=== PATIENT | female | born 1965 | race Caucasian/White ===

== ENCOUNTER 2020-06-21 17:28 | Emergency (ER) | payer MEDICARE ==
--- NOTE | 2020-06-21 18:42 | ER Document Report ---
ED Medical Screen (RME) - General Stated Complaint: SUICIDAL IDEATIONS - HPI Notes: 06/21/20 18:41 Rapid Medical Exam HPI: Patient is a 55-year-old female presents to the ER complaining of depression and suicidal ideation. Patient has no set plan. No prior suicide attempts. Patient is on psychiatric medications and reports compliance. Denies alcohol or drug use. No other physical complaints today. Physical Exam: GENERAL: Well-appearing, well-nourished and in no acute distress. HEAD: Atraumatic, normocephalic. ENT: Moist mucous membranes. RESP: Respirations even and unlabored CV- Regular rate. NEURO: No focal neurological deficits. Moves all extremities spontaneously and on command. My involvement in this patients care was limited to a rapid initial assessment. A comprehensive ED assessment and evaluation of the patient, analysis of test results, treatment, and completion of the medical decision making process will be performed by other ER providers. - Related Data Allergies/Adverse Reactions: No Known Allergies Allergy (Unverified 06/21/20 18:35) Home Medications: effexor. latuda. lamotrigine. doxepin. gabapentin. hydroxyzine. meloxicam. omeprazole Past Medical History - Social History Chew tobacco use (# tins/day): No Frequency of alcohol use: None Drug Abuse: None Physical Exam - Vital signs Vitals: Temp Pulse Resp BP Pulse Ox 98.3 F 115 H 16 113/77 98 06/21/20 18:03 06/21/20 18:03 06/21/20 18:03 06/21/20 18:03 06/21/20 18:03 Course - Vital Signs Vital signs: Temp Pulse Resp BP Pulse Ox 98.3 F 115 H 16 113/77 98 06/21/20 18:03 06/21/20 18:03 06/21/20 18:03 06/21/20 18:03 06/21/20 18:03
[2020-06-21 19:06] LABS: ABSOLUTE BASOPHILS # (AUTO) 0.1 10^3/uL (0.0-0.2); ABSOLUTE MONOCYTES (AUTO) 0.5 10^3/uL (0.1-1.4); ABSOLUTE NEUT (AUTO) 3.4 10^3/uL (1.7-8.2); HEMOGLOBIN 13.3 g/dL (12.0-15.5); TOTAL CELLS COUNTED % (AUTO) 100 %
[2020-06-21 19:09] LABS: APPEARANCE,URINE SLIGHTLY-CLOUDY; BILIRUBIN,URINE NEGATIVE (NEGATIVE); COLOR,URINE YELLOW; GLUCOSE, URINE NEGATIVE (NEGATIVE); KETONES,URINE NEGATIVE (NEGATIVE); LEUKOCYTE ESTERASE,URINE SMALL (NEGATIVE); NITRITE,URINE NEGATIVE (NEGATIVE); PROTEIN,URINE NEGATIVE (NEGATIVE); URINE SPECIFIC GRAVITY 1.012; UROBILINOGEN,URINE NEGATIVE mg/dL (<2.0)
[2020-06-21 19:11] LABS: ABSOLUTE EOSINOPHILS # (AUTO) 0.7 10^3/uL (0.0-0.6); BASOPHILS % (AUTO) 0.8 % (0-2); EOSINOPHILS % (AUTO) 9.7 % (0-6); HEMATOCRIT 39.4 % (36.0-47.0); LYMPHOCYTES % (AUTO) 38.7 % (13-45); MEAN CORPUSCULAR HEMOGLOBIN 28.5 pg (27.0-33.4); MEAN CORPUSCULAR HGB CONC 33.6 g/dL (32.0-36.0); MEAN CORPUSCULAR VOLUME 85 fl (80-97); MONOCYTES % (AUTO) 5.9 % (3-13); PLATELET COUNT 210 10^3/uL (150-450); RED BLOOD COUNT 4.65 10^6/uL (3.72-5.28); RED CELL DISTRIBUTION WIDTH 14.7 % (11.5-14.0); SEGMENTED NEUTROPHILS % (AUTO) 44.9 % (42-78); WHITE BLOOD COUNT 7.7 10^3/uL (4.0-10.5)
[2020-06-21 19:24] LABS: ALBUMIN 4.5 g/dL (3.5-5.0); ALKALINE PHOSPHATASE 71 U/L (38-126); ANION GAP 9 (5-19); ASPARTATE AMINO TRANSFERASE 36 U/L (14-36); BILIRUBIN,DIRECT 0.3 mg/dL (0.0-0.4); BILIRUBIN,TOTAL 0.4 mg/dL (0.2-1.3); BLOOD UREA NITROGEN 21 mg/dL (7-20); CALCIUM 9.7 mg/dL (8.4-10.2); CARBON DIOXIDE 28 mmol/L (22-30); CHLORIDE 103 mmol/L (98-107); GLUCOSE 79 mg/dL (75-110); POTASSIUM 3.4 mmol/L (3.6-5.0); TOTAL PROTEIN 7.1 g/dL (6.3-8.2)
[2020-06-21 19:29] LABS: ALCOHOL < 10 mg/dL (NONE DETECTED); SALICYLATE < 1.0 mg/dL (2.0-20.0); URINE AMPHETAMINES SCREEN NEGATIVE; URINE BARBITURATES SCREEN NEGATIVE; URINE BENZODIAZEPINES SCREEN NEGATIVE; URINE COCAINE SCREEN NEGATIVE; URINE MARIJUANA (THC) SCREEN NEGATIVE; URINE METHADONE SCREEN NEGATIVE; URINE PHENCYCLIDINE SCREEN NEGATIVE
--- NOTE | 2020-06-21 20:40 | PSYCHOLOGICAL NOTE ---
Psych Note - Psych Note Date seen by psych provider: 06/21/20 Time seen by psych provider: 19:03 Psych Note: Reason for Consult: depression Consent permissions: ayleen Mensah, [id number] Patient is a 55 year old female who was admitted to the ED via POV for depression and thoughts of self-harm. Patient denies current suicidal and homicidal ideation, plan, and intent. She initially reports thoughts of self- harm, but later states she does not want to hurt herself, but is having racing thoughts. Patient describes her thoughts as being upset and not being able to get it together. Patient has been admitted to an inpatient facility for substa nce use 2 times in the past in [id number]. 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 She has been living in the recovery house since November 2019. Patient reports going to [facility] with Dr. Echevarria and is prescribed Lamictal 200mg, Latuda 80mg, Doxepin 50mg, Hydroxyzine 50mg, and Clonidine 0.2mg. She reports her medication is not effective and she has been experiencing intermittent suicidal ideations for the past week. Patient denies history of self-harm and suicide attempts. Patient lives in [place], but was kicked out of her recovery home for 7 days and cannot go back until . Patient reports recovery home has a zero tolerance for substance use and she went to the ED in [place] last week for back pain. Patient reports at this time she was given pain medication and Ativan for anxiety about going into the MRI machine. When patient was given a drug screening at her home, she was positive for pain medication and Ativan. She was asked to leave for 7 days. Patient has an upcoming appointment with her PCP on Monday at 0900 at [facility]. When asked about why she came to the ED, denying SI and having an upcoming appointment, she states because she has criteria to meet to be able to go back to her home. Patient reports needing to get Professional psychiatric help, medications changed, and have a good urine sample. She states she has nowhere to go. She reports being able to go back to her daughters house [facility], but feels like a burden if she stays longer. Collateral: called Makenna abbasi, [id number] Daughter reports she told her mother to come to the ED because her medications are all messed up. Daughter reports patient is on medications she was prescribed from a prior doctor and states, Her doctor is glancing at her old charts and just re-prescribing medications she was on in the past. Daughter reports even with negative toxicology screening, patient cannot go to her home until and that is why she came to visit the daughter. Daughter agrees to be part of discharge plan of care. She states, I told her to come back tonight, I did not tell her she could only stay one more day. Daughter resides with her father in law and family and is going to talk to him about mother staying till ; reports she cannot make the call due to it not being her house. She reports she will not let mother sleep on the streets. Daughter denies history of attempting suicide, states her mother reports accidental overdoses, but daughter is unsure. Daughter denies any additional information about patient and states patient just needs to get off all her medications. She reports patient needs to stay with her as Olamide mcnulty is toxic. Lindsay kory reports passive suicidal ideations, but states, It is not passive to me. She says she does not want to be here. She is tired of everything. When asked about plan or intent, daughter denies. Patient was alert and oriented to self, person, place, time and situation. Mood was anxious with congruent affect. She denies current suicidal and homicidal ideations, plan, and intent. Patient did not appear to be responding to internal stimuli as evidenced by fair eye contact and answering questions appropriately when addressed. Thought processes are linear and organized. Conversational speec h was within normal limits for rate, tone and prosody. Intellectual abilities are estimated to be average. Insight, judgment, and impulse control were fair as evidenced by coming to the ED due to depression. Patient engages appropriately. She demonstrates future forward goal oriented thinking as she talks about wanting to get her own house. Clinical Presentation: suicidal ideations, denies plan and intent; depression IVC Criteria per [place] GS 122C Dangerous to others Within the relevant past the individual No has inflicted or attempted to inflict or threatened to inflict serious bodily harm on another AND No that there is a reasonable probability that this conduct will be repeated. OR No has acted in such a way as to create a substantial risk of serious bodily harm to another AND No that there is a reasonable probability that this conduct will be repeated. OR No has engaged in extreme destruction of property AND NO that there is a reasonable probability that this conduct will be repeated. Previous episodes of dangerousness to others, when applicable, may be considered when determining reasonable probability of future dangerous conduct. Clear, cogent, and convincing evidence that an individual has committed a homicide in the relevant past is prima facie evidence of dangerousness to others. Dangerous to self Within the relevant past the individual has done any of the following: acted in such a way as to show ALL of the following: No The individual would be unable without care, supervision, and the continued assistance of others not otherwise available, to exercise self- control, judgment, and discretion in the conduct of the individual's daily responsibilities and social relations or to satisfy the individual's need for nourishment, personal or medical care, usp, or self-protection and safety. AND No There is a reasonable probability of the individual suffering serious physical debilitation within the near future unless adequate treatment is given. A showing of behavior that is grossly irrational, of actions that the individual is unable to control, of behavior that is grossly inappropriate to the situation, or of other evidence of severely impaired insight and judgment shall create a prima facie inference that the individual is unable to care for himself or herself. OR Yes has attempted suicide or threatened suicide Reported passive SI AND No that there is a reasonable probability of suicide unless adequate treatment is given Patient denies current suicidal ideations, plan, and intent; no history of attempts; demonstrates future forward goal oriented thinking as she mentions wanting to get her own home. OR No has mutilated himself or herself or attempted to mutilate himself or h erself AND No that there is a reasonable probability of serious self-mutilation unless adequate treatment is given. NOTE: Previous episodes of dangerousness to self, when applicable, may be consid ered when determining reasonable probability of physical debilitation, suicide, or self-mutilation. Medication recommendations per [facility] contracted psychiatrist, Dr. Raul HINES, are as follows: waiting for pharmacy to reconcile patients medications at this time; passed to [facility] staff at 184; 2039 medications are not reconciled Impression\plan: Patient is cleared from psychiatric services. Patient was admitted to the ED, voluntarily, for depression and passive suicidal ideations. Patient denies suicidal ideations, plan, and intent. She reports intermittent suicidal ideations occurring for the past week, but denies current. She reports depression and anxiety related to her job, her housing situation, and having to attend NA meetings 3 times a week. She reports she is 55 years old and did not picture herself living in a recovery home. Patient demonstrates future forward goal oriented thinking as she talks about wanting to her own home to live in. She has been sober since October 2019. Patient came to the ED looking for medication changes and for a place to stay as she feels like a burden living with her daughter and daughters family. Patient has a follow up appointment with her provider on Monday at 0900 for medication management. Patient is recommended to inquire about medication changes with provider at this appointment. Patient has been seeing provider and on medications for years, reportedly, and her provider has her entire medical history. She continues to deny suicidal ideations. Patient expresses wanting to get involved in therapy as well. She reports for years telling herself she did not need it, but now wants to get involved with therapist. She was recommended to ask PCP for therapy referrals in [facility]. Patients daughter agrees to be part of plan of care. Patient drove self to the ED, but daughter states patient can come back to her house tonight. Patient is recommended to call her recovery house in the morning asking if she provides discharge paperwork and a negative toxicology, if she can come home sooner. Patients toxicology is negative from the ED. Patient was given community resources for outpatient providers, mobile crisis, and detox/substance use facilities. Highlighted was [facility] mobile [facility] (which is also located in [place]) and a few detox facilities in [place] as well. She was recommended to utilize mobile crisis, see her provider, or return to the ED if symptoms return or worsen. Dr. Webb was consulted to care management of this patient; attending physicians in agreement with recommendations and disposition. discharge plans cannot be added to medical provider note due to not being in the system/ patient still being in pit: You have been evaluated by both medical and behavioral health teams for passive suicidal ideations and depression. You have been deemed appropriate for discharge. While in the emergency department you received the following services/or had access to: Medical screening and assessment, nursing services, dietary services, pharmacological services, one-on-one counseling and/or psychotherapy, environmental services, and continuous observation by a patient drug safety specialist. You should continue your home medications as prescribed and follow up with your medication provider. Depression Your evaluation reveals that you have mental depression. While symptoms may be vague, they often include disturbance of sleep, fatigue, loss of appetite, and general loss of interest in life. While depression may be a side effect of drugs, or a reaction to a major change in your life, many cases have no known cause. If depression is acute, and related to a major loss in your life, you can expect it to clear completely with time. If you have been depressed a long time, are prone to repeated bouts of depression or low mood, or have been thinking of suicide, get help. Depression can be treated with anti-depressant medication and counselling. Long-term depression will often take a few weeks to clear, even with appropriate medication. Follow-up care is important. Contact your physician, the hospital emergency center, crisis line, or your counsellor if you are losing control or having self-destructive thoughts. Follow up care: You are currently not involved in outpatient therapy, but are highly recommended to begin outpatient services. You are also recommended to continue medication management with outpatient provider at [facility]. Your next appointment is on Monday at 0900. You are recommended to contact your recovery house in the morning to see if your [facility] discharge paperwork and negative toxicology screening will allow you to come back home early. You have been given a community outpatient referral list to include phone numbers for [facility] and [facility] mobile crisis. If you experience worsening or a significant change in your symptoms, notify the physician immediately, utilize mobile crisis, or return to the Emergency Department at any time for re-evaluation. Your daughter agrees to be a part of your discharge plan of care and is allowing you to stay the night at her house tonight. Dr. Webb was consulted to care management of this patient; attending physicians in agreement with recommendations and disposition.
--- NOTE | 2020-06-21 21:28 | ER Document Report ---
ED General - General Chief Complaint: Psych Problem Stated Complaint: SUICIDAL IDEATIONS - HPI Notes: Chief Complaint: Suicidal ideation Historian: History obtained from patient HPI: This is a 55-year-old female presents to the ER complaining of suicidal ideation and depression. Patient has no set plans to harm herself. Patient has been compliant with her medications. Patient says she feels like her medications are not helping. She denies alcohol or drug use. Denies fevers chest pain, shortness of breath, abdominal pain, nausea vomiting diarrhea, dysuria. ROS: Constitutional: no fevers. HEENT: no REID, sore throat, or vision changes. CV: no chest pain or palpitations. Resp: no cough or SOB. GI: no abdominal pain, or n/v/d. : no dysuria, hematuria, or incont. MSK: no back pain, no joint swelling/redness. Skin: no rashes or itching. Neuro: no seizures, weakness, numbness, or confusion. Hematological: no ecchymosis or easy bleeding. Endocrine: no polyuria/polydipsia, no heat/cold intolerance. Psych: depression, SI PMHx: Reviewed and agree as charted by RN. PSHx: Reviewed and agree as charted by RN. SOCHx: Reviewed and agree as charted by RN. FHX: No significant familial comorbid conditions directly related to patient co mplaint Current Medications: Reviewed and agree with the patient medications as charted by the RN. Allergies: Reviewed and agree with the listed allergies as charted by the RN Physical Exam: Vitals: Reviewed in chart as documented by RN. General: Alert and in NAD. Head: Normocephalic; atraumatic Eyes: PERRLA, Conjunctivae clear sclerae non-icteric bilat ENT: no soft palate swelling or uvular deviation Neck: trachea midline, no unilateral swelling/tenderness/lymphadenopathy CV: RRR, no M/R/G; symmetric distal pulses Resp: respirations even and unlabored, CTA bilat. GI: abd soft and nondistended. NTTP. normal BS. no masses/HSM. no CVAT bilat MSK: FROM of all extremities. No midline CTL spine tenderness/deformity Skin: warm, moist, good turgor. no rash/lesions Neuro: Alert and oriented X 4. following CN 2-12 intact. no unilateral weakness/numbness Psych: No SI/HI or AH/VH. ED Results: Medical Decision-Making: differential includes SI, depressoin, major psychiatric d/o, metabolic abnormality, infectious process, intracrania abnormality, substance abuse, ect plan- labs, UDS, etoh, asa, salicylate, UA, ECG, psych consult - Related Data Allergies/Adverse Reactions: No Known Allergies Allergy (Unverified 06/21/20 18:35) Home Medications: effexor. latuda. lamotrigine. doxepin. gabapentin. hydroxyzine. meloxicam. omeprazole Past Medical History - Social History Smoking Status: Current Every Day Smoker Chew tobacco use (# tins/day): No Frequency of alcohol use: None Drug Abuse: None Family History: Reviewed & Not Pertinent Physical Exam - Vital signs Vitals: Temp Pulse Resp BP Pulse Ox 98.3 F 115 H 16 113/77 98 06/21/20 18:03 06/21/20 18:03 06/21/20 18:03 06/21/20 18:03 06/21/20 18:03 Course - Re-evaluation Re-evalutation: 06/21/20 21:26 Labs reviewed and reassuring. Patient was evaluated by psych for your pain: Take ibuprofen 600 mg and acetaminophen 1000 mg every 6 hours together as needed for pain. If this does not control your pain you may take 15 mg of oral morphine every 4 hours as needed. Please be very careful about using the oral morphine and only use this for severe pain. Cleared for discharge home. Patient has close follow-up with mental health in 2 days. Psych says patient just wants to have her medications altered and was told that we do not do that in the ER, especially if she has close follow-up like this. Patient has no set plan to harm herself aunts just having fleeting suicidal thoughts. Psych spoke with the patient's family member and they agree with the plan of care. EKG was not obtained in the ED. Patient has no physical complaints whatsoever and only does want to discharge home. Strict return factors were discussed regarding worsening suicidal ideation, concerns she may harm herself or others, or any other concerning signs or symptoms. She was encouraged to keep a follow-up appointment with mental health. 06/21/20 21:27 - Vital Signs Vital signs: Temp Pulse Resp BP Pulse Ox 98.3 F 115 H 16 113/77 98 06/21/20 18:03 06/21/20 18:03 06/21/20 18:03 06/21/20 18:03 06/21/20 18:03 - Laboratory Results Result Diagrams: 06/21/20 18:50 06/21/20 18:50 Laboratory Results Interpreted: 06/21/20 06/21/20 06/21/20 18:50 18:50 18:50 RDW 14.7 H Eos % (Auto) 9.7 H Absolute Eos (auto) 0.7 H Potassium 3.4 L BUN 21 H Est GFR (MDRD) Non-Af 50 L Ur Leukocyte Esterase SMALL H Salicylates < 1.0 L Critical Laboratory Results Reviewed: No Critical Results - Radiology Results Critical Radiology Results Reviewed: No Critical Results Discharge - Discharge Clinical Impression: Suicidal ideation Depression Qualifiers: Depression Type: unspecified Qualified Code(s): F32.9 - Major depressive disorder, single episode, unspecified Condition: Stable Disposition: HOME, SELF-CARE Instructions: Depression ([facility]) Additional Instructions: Keep follow-up appointments with mental health. Continue taking your home medications as prescribed. Please return to the ER if your condition worsens or if any concerns about harming yourself or others. Referrals: FRANK CANDELARIO MD [ACTIVE STAFF] - Follow up as needed
[2020-06-21 21:45] VITALS: BP 116/78
== END 2020-06-21 21:45 | disposition home or self-care (01) ==
LOC: ER 17:28
DX: R45.851 Suicidal ideations (principal); F32.9 Major depressive disorder, single episode, unspecified; F17.200 Nicotine dependence, unspecified, uncomplicated
CPT/HCPCS: 36415; 80053; 80307; 81001; 85025; 99284